=== PATIENT | male | born 1980 | race Caucasian/White ===

== ENCOUNTER 2021-02-14 23:39 | Emergency (ER) | payer MEDICAID, OTHER ==
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
[2021-02-15 00:26] LABS: BASOPHILS % (AUTO) 0 % (0-10); EOSINOPHILS % (AUTO) 1 % (0-10); HEMATOCRIT 45 % (40-54); HEMOGLOBIN 15.6 g/dL (13.3-17.7); LYMPHOCYTES # (AUTO) 2.6 X 10^3 (1.0-4.0); LYMPHOCYTES % (AUTO) 24 % (12-44); MEAN CORPUSCULAR HEMOGLOBIN 35 pg (25-34); MEAN CORPUSCULAR HGB CONC 35 g/dL (32-36); MEAN CORPUSCULAR VOLUME 100 fL (80-99); MEAN PLATELET VOLUME 11.2 fL (9.0-12.2); MONOCYTES % (AUTO) 6 % (0-12); NEUTROPHILS # (AUTO) 7.4 X 10^3 (1.8-7.8); NEUTROPHILS % (AUTO) 69 % (42-75); PLATELET COUNT 165 10^3/uL (130-400); WHITE BLOOD COUNT 10.8 10^3/uL (4.3-11.0)
[2021-02-15 00:27] LABS: EOSINOPHILS # (AUTO) 0.1 10^3/uL (0.0-0.3); MONOCYTES # (AUTO) 0.7 X 10^3 (0.0-1.0)
[2021-02-15 00:39] LABS: AMPHETAMINE SCREEN, URINE NEGATIVE (NEGATIVE); BARBITURATE SCREEN URINE NEGATIVE (NEGATIVE); BENZODIAZEPINES SCREEN URINE POSITIVE (NEGATIVE); CANNABINOID SCREEN, URINE NEGATIVE (NEGATIVE); COCAINE SCREEN URINE NEGATIVE (NEGATIVE); METHADONE STAT NEGATIVE (NEGATIVE); METHAMPHETAMINE SCREEN URINE S NEGATIVE (NEGATIVE); OPIATE SCREEN URINE NEGATIVE (NEGATIVE); OXYCODONE STAT NEGATIVE (NEGATIVE); PROPOXYPHENE STAT NEGATIVE (NEGATIVE); TRICYCLIC ANTIDEPRESSANTS SCRE NEGATIVE (NEGATIVE)
[2021-02-15 00:41] LABS: CREATININE SERUM 0.61 MG/DL (0.60-1.30); POTASSIUM 3.7 MMOL/L (3.6-5.0)
[2021-02-15 00:42] LABS: ALBUMIN 4.4 GM/DL (3.2-4.5); BILIRUBIN,TOTAL 0.2 MG/DL (0.1-1.0); CALCIUM 9.5 MG/DL (8.5-10.1)
[2021-02-15] MEDS ORDERED: LORazepam 0.5 MG (ATIVAN) TABLET PO STA (02:19)
[2021-02-15] MEDS ORDERED: LORazepam 1 MG (ATIVAN) TAB ONE (02:30)
[2021-02-15] MEDS ORDERED: NICOTINE 21 MG (NICODERM) PATCH TD ONE (02:30)
[2021-02-15 03:57] VITALS: BP 118/82
== END 2021-02-15 04:25 | disposition home or self-care (01) ==
LOC: ER FS 23:41
DX: F39 Unspecified mood [affective] disorder (principal); Z72.0 Tobacco use
CPT/HCPCS: 36415; 80053; 80306; 82373; 82947; 85025; 93005; 99283; G0480; 80320

== ENCOUNTER 2021-11-15 17:12 | Emergency (ER) | payer MEDICAID ==
[~2021-11-15] VITALS: Ht 149 cm; Wt 45.0 kg
[2021-11-15] MEDS ORDERED: ONDANSETRON 4 MG (ZOFRAN) ORAL DISSOLVE TAB PO STA (17:51)
[2021-11-15] MEDS ORDERED: HYDROcodone/APAP 5 MG/325 MG (LORTAB) TAB PO ONE (18:00)
--- NOTE | 2021-11-15 18:02 | ED GU-Female ---
General Chief Complaint: - Reproductive Stated Complaint: BLOOD IN URINE Nursing Triage Note: Patient has presented to ER with cc of 2 episodes of blood on the tip of his penis today. He reports that for the last several week he has noticed at times that he has the urge to void but it is hard to get the urine started. He has not seen his doctor and came to ER for evaluation. Source: patient Exam Limitations: no limitations History of Present Illness Date Seen by Provider: Nov 15, 2021 Time Seen by Provider: 17:00 Initial Comments Patient is a 41-year-old [facility] male patientwith history of diabetes who presents with hematuria and flank pain. Symptoms began approximately 1 hour ago while showering. Patient reports pain and his back, suprapubic pain and blood in his urethral meatus. He denies trauma to the region. Symptoms resolved and then blood was present upon urinating 30 minutes later. Denies nausea vomiting fever chills sweats. No history of kidney stones or urinary tract infections. No other acute symptoms or complaint Timing/Duration: just prior to arrival Severity/Quality: mild Location: other Radiation: other Activities at Onset: other Sexual Dickens History: other Modifying Factors: Improves With Other Associated Symptoms: other Allergies and Home Medications Allergies Coded Allergies: Penicillins (Verified Allergy, Unknown, 02/14/21) Patient Home Medication List Home Medication List Reviewed: No Ciprofloxacin HCl (Ciprofloxacin HCl) 500 Mg Tablet, 500 MG PO BID Prescribed by: ELAN MAY on 11/15/211935 Review of Systems Review of Systems Constitutional: see HPI EENTM: see HPI Respiratory: see HPI Cardiovascular: see HPI Gastrointestinal: see HPI Genitourinary: see HPI Skin: see HPI Psychiatric/Neurological: See HPI Endocrine: See HPI Hematologic/Lymphatic: See HPI All Other Systemes Reviewed Negative Unless Noted: No Past Feaavuy-Pbzdvu-Tkqxtl Hx Patient Social History Tobacco Use?: Yes Tobacco type used: Cigarettes Use of E-Cig and/or Vaping dev: Yes Substance use?: No Alcohol Use?: No Physical Exam Vital Signs Vital Signs - First Documented 11/15/21 17:31 Temp 36.3 Pulse 101 Resp 16 B/P (MAP) 117/63 (81) Pulse Ox 99 O2 Delivery Room Air Capillary Refill : Height, Weight, BMI Height: '" Weight: lbs. oz. kg; 20.00 BMI Method: General Appearance: WD/WN, no apparent distress HEENT: PERRL/EOMI, normal ENT inspection, pharynx normal Neck: non-tender, full range of motion, supple Cardiovascular: normal peripheral pulses, regular rate, rhythm, no edema Respiratory: lungs clear, normal breath sounds Gastrointestinal: non tender, soft Back: normal inspection, no CVA tenderness Neurologic/Psychiatric: no motor/sensory deficits, alert, oriented x 3 Skin: normal color Focused Exam Sepsis Stage: Ruled Out Progress/Results/Core Measures Suspected Sepsis SIRS Temperature: Pulse: 101 Respiratory Rate: 16 Laboratory Tests 11/15/21 18:12: White Blood Count 9.1 Blood Pressure 117 /63 Mean: 81 Laboratory Tests 11/15/21 18:12: Creatinine 0.80, Platelet Count 131, Total Bilirubin 0.9 Results/Orders Lab Results Laboratory Tests Test 11/15/21 17:15 11/15/21 18:12 Range/Units Urine Color BROWN H Urine Clarity CLOUDY Urine pH 5.5 5-9 Urine Specific [place] 1.025 H 1.016-1.022 Urine Protein NEGATIVE NEGATIVE Urine Glucose (UA) NEGATIVE NEGATIVE Urine Ketones TRACE H NEGATIVE Urine Nitrite NEGATIVE NEGATIVE Urine Bilirubin 1+ H NEGATIVE Urine Urobilinogen 1.0 < = 1.0 MG/DL Urine Leukocyte Esterase TRACE H NEGATIVE Urine RBC (Auto) 3+ H NEGATIVE Urine RBC >100 H /HPF Urine WBC 0-2 /HPF Urine Squamous Epithelial Cells 0-2 /HPF Urine Crystals NONE /LPF Urine Bacteria NEGATIVE /HPF Urine Casts NONE /LPF Urine Mucus NEGATIVE /LPF Urine Culture Indicated NO White Blood Count 9.1 4.3-11.0 10^3/uL Red Blood Count 3.41 L 4.30-5.52 10^6/uL Hemoglobin 11.9 L 13.3-17.7 g/dL Hematocrit 35 L 40-54 % Mean Corpuscular Volume 102 H 80-99 fL Mean Corpuscular Hemoglobin 35 H 25-34 pg Mean Corpuscular Hemoglobin Concent 34 32-36 g/dL Red Cell Distribution Width 12.9 10.0-14.5 % Platelet Count 131 130-400 10^3/uL Mean Platelet Volume 10.5 9.0-12.2 fL Immature Granulocyte % (Auto) 0 % Neutrophils (%) (Auto) 69 42-75 % Lymphocytes (%) (Auto) 25 12-44 % Monocytes (%) (Auto) 5 0-12 % Eosinophils (%) (Auto) 1 0-10 % Basophils (%) (Auto) 0 0-10 % Neutrophils # (Auto) 6.2 1.8-7.8 10^3/uL Lymphocytes # (Auto) 2.3 1.0-4.0 10^3/uL Monocytes # (Auto) 0.4 0.0-1.0 10^3/uL Eosinophils # (Auto) 0.1 0.0-0.3 10^3/uL Basophils # (Auto) 0.0 0.0-0.1 10^3/uL Immature Granulocyte # (Auto) 0.0 0.0-0.1 10^3/uL Sodium Level 139 135-145 MMOL/L Potassium Level 4.5 3.6-5.0 MMOL/L Chloride Level 104 98-107 MMOL/L Carbon Dioxide Level 26 21-32 MMOL/L Anion Gap 9 5-14 MMOL/L Blood Urea Nitrogen 23 H 7-18 MG/DL Creatinine 0.80 0.60-1.30 MG/DL Estimat Glomerular Filtration Rate 115 BUN/Creatinine Ratio 29 Glucose Level 125 H 70-105 MG/DL Calcium Level 9.1 8.5-10.1 MG/DL Corrected Calcium 9.0 8.5-10.1 MG/DL Total Bilirubin 0.9 0.1-1.0 MG/DL Aspartate Amino Transf (AST/SGOT) 49 H 5-34 U/L Alanine Aminotransferase (ALT/SGPT) 69 H 0-55 U/L Alkaline Phosphatase 65 40-136 U/L Total Protein 6.6 6.4-8.2 GM/DL Albumin 4.1 3.2-4.5 GM/DL My Orders Orders - ELAN MAY DO Cbc With Automated Diff (11/15/21 17:51) Comprehensive Metabolic Panel (11/15/21 17:51) Ua Culture If Indicated (11/15/21 17:51) Ct Abdomen/Pelvis Wo (11/15/21 17:51) Hydrocodone/Apap 5/325 Tablet (Lortab 5 (11/15/21 18:00) Ondansetron Oral Dissolve Tab (Zofran (11/15/21 17:51) Ciprofloxacin Tablet (Cipro Tablet) (11/15/21 18:45) Medications Given in ED Current Medications Medications Dose Ordered Sig/Emely Route Start Time Stop Time Status Last Admin Dose Admin Acetaminophen/ Hydrocodone Bitart 1 ea ONCE ONCE PO 11/15/21 18:00 11/15/21 18:01 DC 11/15/21 18:01 1 EA Vital Signs/I&O 11/15/21 17:31 Temp 36.3 Pulse 101 Resp 16 B/P (MAP) 117/63 (81) Pulse Ox 99 O2 Delivery Room Air Capillary Refill : Blood Pressure Mean: 81 Departure Communication (Admissions) CT abdomen pelvis: No obvious kidney stone disease. Patient with hematuria with possible urinary tract infection without acute urin sonia outlet obstruction. Oral antibiotics given. Basic labs and imaging studies obtained. Will treat supportively with PCP and urology follow-up. Return precaution reviewed. Patient verbalizes understanding agreement with discharge instructions prior to departure. Impression Primary Impression: Hematuria Disposition: HOME, SELF-CARE Condition: Stable Departure-Patient Inst. Decision time for Depature: 19:33 Referrals: OLIVIA CARY APRN (PCP) Primary Care Physician JOSE NUNEZ MD Patient Instructions: Urinary Tract Infection, Child (DC), Blood in the Urine (Hematuria) in Adults Add. Discharge Instructions: Baltazar was evaluated in the emergency department for blood in his urine. The exact cause of his symptoms has not been determined. Please and encourage increased fluid intake and complete full course of antibiotics. He should follow-up with his PCP in the next 5 to [address] Fonseca telephone cleaner for urology. She did develop new or worsening symptoms, return to the emergency department All discharge instructions reviewed with patient and/or family. Voiced understanding. Scripts Ciprofloxacin HCl (Ciprofloxacin HCl) 500 Mg Tablet 500 MG PO BID, #14 TAB Prov: ELAN MAY DO 11/15/21 ELAN MAY DO Nov 15, 2021 18:02
--- NOTE | 2021-11-15 18:15 | Diagnostic Imaging Report ---
PROCEDURE: CT abdomen and pelvis without contrast. TECHNIQUE: Multiple contiguous axial images were obtained through the abdomen and pelvis without the use of intravenous contrast. Auto Exposure Controls were utilized during the CT exam to meet ALARA standards for radiation dose reduction. INDICATION: Flank pain and hematuria. COMPARISON: No comparison is available. FINDINGS: The lung bases demonstrate no evidence of pneumonia or edema. There is no effusion or pericardial collection. The liver demonstrates hepatomegaly with low density suggesting mild steatosis. There is no focal intrahepatic abnormality evident. The gallbladder is nondistended without evidence gallstones or biliary dilatation. Pancreas unremarkable without adjacent fat stranding or fluid. The spleen is normal in size. There is no adrenal mass. The kidneys demonstrate no evidence of hydronephrosis. There is no significant perinephric fat stranding. There is no radiodense stone evident within the kidneys. There is no stone evident within the ureters. There does appear to be urinary bladder wall thickening. In a patient of this age, a primary consideration would be that of an inflammatory process such as cystitis. Correlation with urinalysis appreciated. There is a large degree of stool present within the colon without bowel dilation or evidence of bowel obstruction. The appendix is normal. There is no free air, free fluid or abscess. There is no finding of adenopathy. Aorta is normal in caliber. There is no acute or suspicious osseous abnormality. IMPRESSION: 1. Thick-walled urinary bladder. The bladder wall appears irregular and this does not appear to be simply due to underdistention. Correlate with urinalysis to exclude cystitis. 2. No finding of hydronephrosis or evidence of urolithiasis. 3. Large degree of stool throughout the colon without finding of bowel obstruction. 4. No free air, free fluid, abscess or adenopathy. Dictated by: Dictated on workstation # [id number]
[2021-11-15 18:16] LABS: BASOPHILS % (AUTO) 0 % (0-10); EOSINOPHILS # (AUTO) 0.1 10^3/uL (0.0-0.3); EOSINOPHILS % (AUTO) 1 % (0-10); HEMATOCRIT 35 % (40-54); HEMOGLOBIN 11.9 g/dL (13.3-17.7); LYMPHOCYTES # (AUTO) 2.3 10^3/uL (1.0-4.0); LYMPHOCYTES % (AUTO) 25 % (12-44); MEAN CORPUSCULAR HEMOGLOBIN 35 pg (25-34); MEAN CORPUSCULAR HGB CONC 34 g/dL (32-36); MEAN CORPUSCULAR VOLUME 102 fL (80-99); MEAN PLATELET VOLUME 10.5 fL (9.0-12.2); MONOCYTES # (AUTO) 0.4 10^3/uL (0.0-1.0); MONOCYTES % (AUTO) 5 % (0-12); NEUTROPHILS # (AUTO) 6.2 10^3/uL (1.8-7.8); NEUTROPHILS % (AUTO) 69 % (42-75); PLATELET COUNT 131 10^3/uL (130-400); WHITE BLOOD COUNT 9.1 10^3/uL (4.3-11.0)
[2021-11-15 18:38] LABS: ALBUMIN 4.1 GM/DL (3.2-4.5); BILIRUBIN,TOTAL 0.9 MG/DL (0.1-1.0); CALCIUM 9.1 MG/DL (8.5-10.1); CREATININE SERUM 0.8 MG/DL (0.60-1.30); POTASSIUM 4.5 MMOL/L (3.6-5.0); TOTAL PROTEIN 6.6 GM/DL (6.4-8.2)
[2021-11-15 18:38] LABS: CLARITY,URINE CLOUDY; COLOR,URINE BROWN; GLUCOSE, URINE (UA) NEGATIVE (NEGATIVE); KETONES,URINE TRACE (NEGATIVE); LEUKOCYTE ESTERASE ,URINE TRACE (NEGATIVE); NITRITE,URINE NEGATIVE (NEGATIVE); PH,URINE 5.5 (5-9); PROTEIN,URINE NEGATIVE (NEGATIVE)
[2021-11-15 18:45] LABS: BACTERIA,URINE NEGATIVE /HPF; BILIRUBIN,URINE 1+ (NEGATIVE); RBC,URINE >100 /HPF; SQUAMOUS EPITHELIAL CELL,UR 0-2 /HPF; WBC,URINE 0-2 /HPF
[2021-11-15] MEDS ORDERED: CIPROFLOXACIN 500 MG (CIPRO) TABLET PO SCH (18:45)
[2021-11-15] MEDS ORDERED: CIPR500T5 PO (19:36)
[2021-11-15 20:12] VITALS: BP 117/65
== END 2021-11-15 20:00 | disposition home or self-care (01) ==
LOC: EDUNIT# 17:12 → ER FS 17:13
DX: R31.9 Hematuria, unspecified (principal); F17.210 Nicotine dependence, cigarettes, uncomplicated; Z88.0 Allergy status to penicillin
CPT/HCPCS: 36415; 74176; 80053; 81000; 85025; 99282

== ENCOUNTER 2022-04-06 19:10 | Emergency (ER) | payer MEDICARE, MEDICAID ==
[~2022-04-06 19:10] MED LIST: CIPR500T5 PO
--- NOTE | 2022-04-06 19:19 | ED Psychosocial ---
General Stated Complaint: MENTAL HEALTH EVAL History of Present Illness Date Seen by Provider: Apr 06, 2022 Time Seen by Provider: 19:14 Initial Comments 41-year-old male presents for behavioral health evaluation. Patient is a patient of [facility]. Patient does have some underlying developmental delay. He presents because he is having a hard time at the house but no one really clarify what is going on. He showed up at the veneer sander's house that lives behind him. He reports he just does not want to live anymore. He will not elaborate on why because he is scared that someone from [facility] is outside the emergency room listening to him. Patient does not have a plan. He is very anxious and easily becomes tearful Allergies and Home Medications Allergies Coded Allergies: Penicillins (Verified Allergy, Unknown, 02/14/21) Patient Home Medication List Home Medication List Reviewed: Yes Ciprofloxacin HCl (Ciprofloxacin HCl) 500 Mg Tablet, 500 MG PO BID Prescribed by: ELAN MAY on 11/15/211935 Review of Systems Constitutional: no symptoms reported EENTM: no symptoms reported Respiratory: no symptoms reported Cardiovascular: no symptoms reported Gastrointestinal: no symptoms reported Genitourinary: no symptoms reported Musculoskeletal: no symptoms reported Skin: no symptoms reported Psychiatric/Neurological: See HPI, Anxiety, Emotional Problems Physical Exam Vital Signs - First Documented 04/06/22 19:13 Pulse 104 Resp 22 B/P (MAP) 134/87 (103) Pulse Ox 99 O2 Delivery Room Air Capillary Refill : Height, Weight, BMI Height: '" Weight: lbs. oz. kg; 20.00 BMI Method: General Appearance: other (Anxious and easily tearful) HEENT: PERRL/EOMI Neck: full range of motion, supple Respiratory: lungs clear, normal breath sounds Cardiovascular: normal peripheral pulses, regular rate, rhythm Gastrointestinal: soft Extremities: normal range of motion, normal capillary refill Neurologic/Psychiatric: alert Appearance/Memory: other (Anxious, somewhat paranoid) Behavior/Eye Contact: other (Withdrawn, tearful) Thoughts/Hallucinations: No no apparent hallucination, No auditory hallucinations; persecution Skin: normal color, warm/dry Progress/Results/Core Measures Results/Orders Lab Results Laboratory Tests Test 04/06/22 19:21 04/06/22 19:23 04/06/22 19:31 Range/Units Sodium Level 140 135-145 MMOL/L Potassium Level 4.1 3.6-5.0 MMOL/L Chloride Level 102 98-107 MMOL/L Carbon Dioxide Level 24 21-32 MMOL/L Anion Gap 14 5-14 MMOL/L Blood Urea Nitrogen 15 7-18 MG/DL Creatinine 0.78 0.60-1.30 MG/DL Estimat Glomerular Filtration Rate 116 BUN/Creatinine Ratio 19 Glucose Level 146 H 70-105 MG/DL Calcium Level 9.5 8.5-10.1 MG/DL Corrected Calcium 8.5-10.1 MG/DL Total Bilirubin 0.7 0.1-1.0 MG/DL Aspartate Amino Transf (AST/SGOT) 36 H 5-34 U/L Alanine Aminotransferase (ALT/SGPT) 36 0-55 U/L Alkaline Phosphatase 79 40-136 U/L Total Protein 7.2 6.4-8.2 GM/DL Albumin 4.6 H 3.2-4.5 GM/DL Salicylates Level < 0.3 L 5.0-20.0 MG/DL Acetaminophen Level < 10 L 10-30 UG/ML Serum Alcohol < 10 <10 MG/DL White Blood Count 5.7 4.3-11.0 10^3/uL Red Blood Count 3.92 L 4.30-5.52 10^6/uL Hemoglobin 13.3 13.3-17.7 g/dL Hematocrit 39 L 40-54 % Mean Corpuscular Volume 99 80-99 fL Mean Corpuscular Hemoglobin 34 25-34 pg Mean Corpuscular Hemoglobin Concent 34 32-36 g/dL Red Cell Distribution Width 13.4 10.0-14.5 % Platelet Count 166 130-400 10^3/uL Mean Platelet Volume 10.1 9.0-12.2 fL Immature Granulocyte % (Auto) 0 % Neutrophils (%) (Auto) 48 42-75 % Lymphocytes (%) (Auto) 44 12-44 % Monocytes (%) (Auto) 6 0-12 % Eosinophils (%) (Auto) 2 0-10 % Basophils (%) (Auto) 0 0-10 % Neutrophils # (Auto) 2.7 1.8-7.8 10^3/uL Lymphocytes # (Auto) 2.5 1.0-4.0 10^3/uL Monocytes # (Auto) 0.3 0.0-1.0 10^3/uL Eosinophils # (Auto) 0.1 0.0-0.3 10^3/uL Basophils # (Auto) 0.0 0.0-0.1 10^3/uL Immature Granulocyte # (Auto) 0.0 0.0-0.1 10^3/uL Urine Color YELLOW Urine Clarity CLEAR Urine pH 6.0 5-9 Urine Specific [place] 1.015 L 1.016-1.022 Urine Protein NEGATIVE NEGATIVE Urine Glucose (UA) 3+ H NEGATIVE Urine Ketones NEGATIVE NEGATIVE Urine Nitrite NEGATIVE NEGATIVE Urine Bilirubin NEGATIVE NEGATIVE Urine Urobilinogen 1.0 < = 1.0 MG/DL Urine Leukocyte Esterase NEGATIVE NEGATIVE Urine RBC (Auto) NEGATIVE NEGATIVE Urine RBC RARE /HPF Urine WBC 0-2 /HPF Urine Squamous Epithelial Cells 5-10 /HPF Urine Crystals NONE /LPF Urine Bacteria TRACE /HPF Urine Casts NONE /LPF Urine Mucus NEGATIVE /LPF Urine Culture Indicated NO Urine Opiates Screen NEGATIVE NEGATIVE Urine Oxycodone Screen NEGATIVE NEGATIVE Urine Methadone Screen NEGATIVE NEGATIVE Urine Propoxyphene Screen NEGATIVE NEGATIVE Urine Barbiturates Screen NEGATIVE NEGATIVE Ur Tricyclic Antidepressants Screen NEGATIVE NEGATIVE Urine Phencyclidine Screen NEGATIVE NEGATIVE Urine Amphetamines Screen NEGATIVE NEGATIVE Urine Methamphetamines Screen NEGATIVE NEGATIVE Urine Benzodiazepines Screen NEGATIVE NEGATIVE Urine Cocaine Screen NEGATIVE NEGATIVE Urine Cannabinoids Screen NEGATIVE NEGATIVE My Orders Orders - MARTIN,YAYO L DO Ua Culture If Indicated (04/06/22 19:23) Cbc With Automated Diff (04/06/22 19:23) Comprehensive Metabolic Panel (04/06/22 19:23) Alcohol (04/06/22 19:23) Drug Screen Stat (Urine) (04/06/22 19:23) Acetaminophen (04/06/22 19:23) Salicylate (04/06/22 19:23) Ekg Tracing (04/06/22 19:23) Bh Status Checks/Observation O Q15M (04/06/22 19:23) Vital Signs/I&O 04/06/22 04/06/22 19:13 20:30 Pulse 104 104 Resp 22 B/P (MAP) 134/87 (103) 134/87 Pulse Ox 99 99 O2 Delivery Room Air Room Air Progress Progress Note : Progress Note Patient staff from [facility] came and visit with patient in the ER. They were able to make arrangements for him to be moved to a different living situation tonight. Patient stressed improved and he agreed that he would prefer to to try [facility] with staff. Staff has a safety plan in place in an he will be in a safe situation throughout the night. He is better following this arrangement. He is requesting to be discharged with them. Patient was discharged in stable condition peer Initial ECG Impression Date: Apr 06, 2022 Initial ECG Impression Time: 19:29 Initial ECG Rate: 94 Initial ECG Rhythm: Normal Sinus Initial ECG Intervals incomplete RBBB Initial ECG Impression: Nonspecific Changes Comment no st elevation or acute changes Departure Impression Primary Impression: Situational anxiety Additional Impression: Situational stress Disposition: 01 HOME, SELF-CARE Condition: Stable Departure-Patient Inst. Referrals: OLIVIA CARY APRN (PCP/Family) Primary Care Physician Patient Instructions: OUTPT MENTAL HEALTH SERVICES Add. Discharge Instructions: Return to the emergency room as needed, follow-up with behavioral health as needed YAYO MARTIN DO Apr 06, 2022 19:19
[2022-04-06 19:28] LABS: BASOPHILS % (AUTO) 0 % (0-10); EOSINOPHILS # (AUTO) 0.1 10^3/uL (0.0-0.3); EOSINOPHILS % (AUTO) 2 % (0-10); HEMATOCRIT 39 % (40-54); HEMOGLOBIN 13.3 g/dL (13.3-17.7); LYMPHOCYTES # (AUTO) 2.5 10^3/uL (1.0-4.0); LYMPHOCYTES % (AUTO) 44 % (12-44); MEAN CORPUSCULAR HEMOGLOBIN 34 pg (25-34); MEAN CORPUSCULAR HGB CONC 34 g/dL (32-36); MEAN CORPUSCULAR VOLUME 99 fL (80-99); MEAN PLATELET VOLUME 10.1 fL (9.0-12.2); MONOCYTES # (AUTO) 0.3 10^3/uL (0.0-1.0); MONOCYTES % (AUTO) 6 % (0-12); NEUTROPHILS # (AUTO) 2.7 10^3/uL (1.8-7.8); NEUTROPHILS % (AUTO) 48 % (42-75); PLATELET COUNT 166 10^3/uL (130-400); WHITE BLOOD COUNT 5.7 10^3/uL (4.3-11.0)
[2022-04-06 19:39] LABS: BILIRUBIN,URINE NEGATIVE (NEGATIVE); CLARITY,URINE CLEAR; COLOR,URINE YELLOW; GLUCOSE, URINE (UA) 3+ (NEGATIVE); KETONES,URINE NEGATIVE (NEGATIVE); LEUKOCYTE ESTERASE ,URINE NEGATIVE (NEGATIVE); NITRITE,URINE NEGATIVE (NEGATIVE); PROTEIN,URINE NEGATIVE (NEGATIVE)
[2022-04-06 19:40] LABS: BACTERIA,URINE TRACE /HPF; RBC,URINE RARE /HPF; WBC,URINE 0-2 /HPF
[2022-04-06 19:46] LABS: ACETAMINOPHEN < 10 UG/ML (10-30); ALANINE AMINOTRANSFERASE 36 U/L (0-55); ALBUMIN 4.6 GM/DL (3.2-4.5); ALKALINE PHOSPHATASE 79 U/L (40-136); BILIRUBIN,TOTAL 0.7 MG/DL (0.1-1.0); BUN/CREATININE RATIO 19; CALCIUM 9.5 MG/DL (8.5-10.1); CARBON DIOXIDE 24 MMOL/L (21-32); CHLORIDE 102 MMOL/L (98-107); CREATININE SERUM 0.78 MG/DL (0.60-1.30); GFR ESTIMATED 116; GLUCOSE 146 MG/DL (70-105); POTASSIUM 4.1 MMOL/L (3.6-5.0); SALICYLATE < 0.3 MG/DL (5.0-20.0); SODIUM 140 MMOL/L (135-145); TOTAL PROTEIN 7.2 GM/DL (6.4-8.2)
[2022-04-06 19:48] LABS: AMPHETAMINE SCREEN, URINE NEGATIVE (NEGATIVE); BARBITURATE SCREEN URINE NEGATIVE (NEGATIVE); BENZODIAZEPINES SCREEN URINE NEGATIVE (NEGATIVE); CANNABINOID SCREEN, URINE NEGATIVE (NEGATIVE); COCAINE SCREEN URINE NEGATIVE (NEGATIVE); METHADONE STAT NEGATIVE (NEGATIVE); OPIATE SCREEN URINE NEGATIVE (NEGATIVE); OXYCODONE STAT NEGATIVE (NEGATIVE); PROPOXYPHENE STAT NEGATIVE (NEGATIVE); TRICYCLIC ANTIDEPRESSANTS SCRE NEGATIVE (NEGATIVE)
[2022-04-06 20:30] VITALS: BP 134/87
== END 2022-04-06 20:34 | disposition home or self-care (01) ==
LOC: EDUNIT# 19:10 → ER FS 19:11
DX: F41.8 Other specified anxiety disorders (principal); F43.9 Reaction to severe stress, unspecified; Z28.310 Unvaccinated for COVID-19
CPT/HCPCS: 36415; 80053; 80306; 81000; 85025; 99284; G0480 ×3; 80320; 80329; 93005